=== PATIENT | male | born 1985 | race Asian ===

== ENCOUNTER 2019-06-24 15:31 | Emergency (ER) | payer MEDICAID ==
[~2019-06-24] VITALS: Ht 167.6 cm; Wt 70.5 kg
[2019-06-24] MEDS ORDERED: PRED1 PO (15:43)
[2019-06-24] MEDS ORDERED: TACR.5 PO (15:43)
[2019-06-24] MEDS ORDERED: MYCO250C7 PO (15:43)
[2019-06-24 17:05] VITALS: BP 144/81
== END 2019-06-24 17:07 | disposition home or self-care (01) ==
LOC: EMS 15:35
DX: Z76.0 Encounter for issue of repeat prescription (principal); Z94.0 Kidney transplant status